=== PATIENT | female | born 1955 | race Caucasian/White ===

== ENCOUNTER → 2019-04-22 14:25 | Outpatient (CLI) | payer MEDICARE | END | disposition home or self-care (01) | LOC: D.HCCARDIO 14:25 | PROVIDERS: ATTEND Internal Medicine Interventional Cardiology | DX: I10 Essential (primary) hypertension (principal); R55 Syncope and collapse ==

== ENCOUNTER 2019-05-14 11:45 | Outpatient (CLI) | payer MEDICARE ==
[~2019-05-14] VITALS: Ht 162.6 cm; Wt 74.1 kg
--- NOTE | ~2019-05-14 | OP ---
PATIENT NAME: DEB LINDSEY MEDICAL RECORD: [id number] :57 LOCATION:D.CAT ADMISSION DATE: SURGEON: KACIE ARREAGA MD DATE OF OPERATION: 05/15/2019 PROCEDURE: Lead portion of permanent pacemaker placement. SURGEON: Yo Frank MD INDICATION: Sick sinus syndrome with pauses greater than 3 seconds. DESCRIPTION OF PROCEDURE: After left subclavian was cannulated via modified Seldinger technique via Dr. Frank, first under fluoroscopic guidance, I placed the RV lead in the RV apex without difficulty. After adequate R waves and thresholds were obtained, again under fluoroscopic guidance, I placed the right atrial lead into right atrial appendage without difficulty. After adequate P waves, thresholds were obtained, the leads were attached to appropriate poles of the generator and the pocket was closed via Dr. Frank. IMPRESSION: Successful lead portion of permanent pacemaker on Deb Lindsey. ESTIMATED BLOOD LOSS: Minimal. COMPLICATIONS: None. DISPOSITION: To the floor, stable. TRANSINT:[id number] Voice Confirmation ID: [id number] DOCUMENT ID: [id number] KACIE ARREAGA MD CC: [id number] DICTATION DATE: 05/19/19 1519 CONSULTING PSYCHIATRIST: 05/20/19 0143 DEP CLI 05/15/19 [id number] [place] [address]
--- NOTE | ~2019-05-14 | HEMODYNAMI ---
PATIENT:DEB FORD MEDICAL RECORD: [id number] : 57 LOCATION:DROBBIE ADMISSION DATE: 05/14/19 Generatedon:05/14/201915:41 Patient name: DEB FORD Patient #: [id number] SSN: : 1955 Date of study: 05/14/2019 Page: Of Hemodynamic Procedure Report Patient Data Patient Demographics Procedure consent was obtained First Name: DEB Gender: Female Last Name: LILIANA : 1955 [facility] Initial: IQRA Age: 63 year(s) Patient #: [id number] Race: Unknown Additional ID: [id number] Contact details [address]: [address] [place] [address] State: [place] City: [place] Zip code: [address] Past Medical History Allergies Allergen Reaction Date Comments Reported Other allergy 05/14/2019 ALICIA FINN Admission Admission Data Admission Date: 05/14/2019 Admission Time: 11:45 Height (in.): 64 BSA: 1.79 (m2) Height (cm.): 162.56 BMI: 28 (kg/m2) Weight (lbs.): 163.14 Weight (kg.): 74 Lab Results Lab Result Date: 05/14/2019 Lab Result Time: 0:00 Biochemistry Name Units Result Min Max BUN mg/dl 22 --(----)-* 7 18 Creatinine mg/dl 0.7 --(*---)-- 0.6 1.3 eGFR ml/min 90 --(*---)-- 90 120 NONAFRICAN CBC Name Units Result Min Max Hematocrit % 40.7 -*(----)-- 42 54 Hemoglobin g/dl 14.1 --(*---)-- 13.5 17.5 Procedure Procedure Types Cath Procedure Diagnostic Procedure PPM/ICD PPM Dual Implant Sedation Charges Moderate Sedation up to 30 minutes Procedure Description Procedure Date Procedure Date: 05/14/2019 Procedure Start Time: 15:09 Procedure End Time: 15:38 Procedure Staff Name Function Kareem Márquez MD Performing Physician Yo Frank MD Assisting physician Sara Barriga RT Monitor Briseyda Jacobs RT Monitor Ines Garcia RT Scrub Nikos Berry RN Nurse Procedure Data Cath Procedure Fluoroscopy Diagnostic fluoroscopy Total fluoroscopy Time: 3.6 time: 3.6 min min Diagnostic fluoroscopy Total fluoroscopy dose: dose: 109.26 mGy 109.26 mGy Estimated blood loss: 10 ml Procedure Complications No complications Procedure Medications Medication Administration Route Dosage Oxygen etCO2 Nasal cannula 2 l/min Lidocaine 1% added to field 20 Ancef (1Gm/50ml NS) I.V.P.B 1 g Ancef Irrigation Topical 1 g (1gm/500ml NS) 0.9% NaCl I.V. Versed I.V. 2 mg Fentanyl I.V. 100 mcg Versed I.V. 2 mg Fentanyl I.V. 100 mcg Versed I.V. 2 mg Fentanyl I.V. 100 mcg Versed I.V. 2 mg Hemodynamics Rest BSA: 1.79 (m2) HGB: 14.1 (g/dl) O2 Consumption: Estimated: 164.12 (ml/min) O2 Co nsumption indexed: Estimated:91.69 (ml/min/m) Heart Rate: 63 (bpm) Snapshots Pre Cath Intra NCS Post Cath Vital Signs Time Heart Resp SPO2 etCO2 NIBP (mmHg) Rhythm Pain Sedation Rate (ipm) (%) (mmHg) Status Level (bpm) 14:43:47 57 15 100 31.8 128/74(107) NSR (Missing) 10(A) 14:48:59 76 24 94 21.4 89/67(75) NSR (Missing) 10(A) 14:53:48 64 19 96 36.9 103/63(89) NSR (Missing) 10(A) 14:57:53 63 18 95 36.9 97/59(76) NSR (Missing) 10(A) 15:03:27 65 27 94 26.6 105/70(89) NSR (Missing) 10(A) 15:07:37 64 13 92 0 86/54(79) NSR (Missing) 10(A) 15:12:50 84 12 94 56.2 87/52(64) NSR (Missing) 9(A) 15:16:50 62 23 94 39.2 79/59(72) NSR (Missing) 9(A) 15:21:43 31 14 94 33.2 84/51(67) NSR (Missing) 9(A) 15:25:42 63 14 96 40.6 98/59(69) NSR (Missing) 9(A) 15:29:48 63 17 96 37.7 86/54(72) NSR (Missing) 9(A) 15:33:46 71 16 93 0 94/64(88) NSR (Missing) 9(A) 15:37:45 78 13 94 0 107/71(81) NSR (Missing) 10(A) Medications Time Medication Route Dose Verified Delivered Reason Notes Effectiv eness by by 14:59:36 Oxygen etCO2 2 Kareem Buffie used for Nasal l/min St Bill Berry RN procedure cannula 14:59:46 Lidocaine added 20ml Kareem Taoism for local 1% to vial St Bill Frank MD anesthetic field x2 14:59:56 Ancef I.V.P.B 1 g Kareem Buffie used for (1Gm/50ml St Bill Berry RN procedure NS) 15:00:05 Ancef Topical 1 g Kareem Taoism used for Irrigation St Bill Frank MD procedure (1gm/500ml NS) 15:00:16 0.9% NaCl I.V. kvo Kareem Pearsonie Per ml/hr St Bill Berry RN physician 15:06:03 Versed I.V. 2 mg Kareem Buffie for WilliBill Berry RN sedation 15:06:08 Fentanyl I.V. 100 Kareem Buffie for [facility] Bill Berry RN sedation 15:11:52 Versed I.V. 2 mg Kareem Buffie for WilliBill Berry RN sedation 15:11:56 Fentanyl I.V. 100 Kareem Buffie for mcg WilliBill Berry RN sedation 15:14:53 Versed I.V. 2 mg Kareem Buffie for WilliBill Berry RN sedation 15:14:58 Fentanyl I.V. 100 Kareem Buffie for [facility] Bill Berry RN sedation 15:21:16 Versed I.V. 2 mg Kareem Buffie for WilliBill Berry RN sedation Procedure Log Time Note 15:06:47 14:18:08 Informed consent obtained and on chart 14:18:34 Procedure Status Elective Heart Cath (OP). 14:18:35 Time tracking: Regular hours (M-F 7:00 - 5:00) 14:18:38 Plan of Care:Hemodynamics will remain stable., Cardiac rhythm will remain stable., Comfort level will be maintained., Respiratory function will remain adequate., Patient/ family verbilizes understanding of procedure., Procedure tolerated without complication., Recovers from procedure without complications.. 14:18:57 H&P Date Dictated: 05/14/2019 New H&P dictated by physician.. 14:20:16 Patient allergic to Other allergyCODEINE, OSPHENA 14:20:37 Lab Result : BUN 22 mg/dl 14:20:38 Lab Result : Creatinine 0.7 mg/dl 14:20:38 Lab Result : eGFR NONAFRICAN 90 ml/min 14:20:38 Lab Result : Hemoglobin 14.1 g/dl 14:20:38 Lab Result : Hematocrit 40.7 % 14:20:49 Nikos Berry RN sent for patient. Start room use. 14:21:00 Use device set JACKIE PPM 14:21:01 2-0 Ticron Multipack ([id number]) opened to sterile field. 14:21:02 3-0 Vicryl Single Pack [id number] opened to sterile field. 14:21:02 5-0 Monocryl PS2 [id number] opened to sterile field. 14:21:03 Cautery Tip Hearing Healthcare Practitioner opened to sterile field. 14:21:03 Cautery Pushbutton Pencil opened to sterile field. 14:21:05 Mepilex Dressing (010068) opened to sterile field. 14:21:07 Immobilizer Large opened to sterile field. 14:21:16 Medtronic 4074-52 PPM Lead opened to sterile field. 14:21:16 Medtronic 4574-45 PPM Lead opened to sterile field. 14:21:[address] Generator [id number] opened to sterile field. 14:23:58 Medtronic sales representative jewelry SACHA POWELL present for procedure. 14:24:17 Patient Weight : 163.14 lbs 14:24:20 Patient Height : 64 inches 14:31:58 Patient received from Pre/Post Procedure Room to [facility] 3 Alert and oriented. Tansferred to table in Supine position. 14:32:00 Warm blankets applied, and christiano hugger turned on for patient comfort. 14:32:00 Correct patient and procedure confirmed by team. 14:32:01 ECG and BP/O2 sat monitors applied to patient. 14:42:36 Vital chart was started 14:42:49 Baseline sample Acquired. 14:42:54 Rhythm: sinus bradycardia 14:42:57 Full Disclosure recording started 14:42:59 - 14:43:00 Pre-procedure instructions explained to patient. 14:43:01 Pre-op teaching completed and patient verbalized understanding. 14:43:04 Family in patients room. 14:43:09 Patient NPO since Midnight. 14:43:24 Is the patient allergic to Iodine/contrast media? Unknown. 14:43:29 Was the patient premedicated? Yes 14:43:32 Is patient on blood thinner?Yes 14:43:38 ACC The patient was administered the following blood thiners within the last 24 hours: ACCAspirin 14:43:42 Patient diabetic? No. 14:43:51 Patient not . Patient is over age 55. 14:43:54 ----Pre-sedation anethsthesia assessment.---- 14:44:02 Previous problem with sedation/anesthesia? No ? 14:44:04 Snore? Yes 14:44:07 Sleep apnea? No 14:44:09 Deviated septum? No 14:44:11 Opens mouth fully? Yes 14:44:13 Sticks out tongue? Yes 14:44:18 Airway obstruction? No ? 14:44:28 Dentures? Yes PARTIAL IN TIGHT 14:44:38 Patient pain scale 0/10 ?. 14:44:50 IV patent on arrival in right wrist with 0.9% NaCl at [facility]. 14:44:57 Lab results completed and on chart. 14:45:08 Left chest area was prepped with chlora-prep and draped in sterile fashion 14:45:10 Alarms reviewed by Demond Garland 14:45:11 Sharps counted by scrub and verified by R.N. 14:46:05 Medtronic sales representative jewelry SACHA POWELL present for procedure. 14:46:15 Use device set JACKIE PPM 14:50:59 Pre sharps counted by scrub and verified by RN: Sutures: 7; Sponges: 5; Stick needles: 2; Skin needles: 1; Blade: 1; Cautery: 1 14:51:29 Grounding pad site Left thigh. 14:51:31 Grounding pad site free from injury. 14:59:36 Oxygen 2 l/min etCO2 Nasal cannula was administered by Nikos Berry RN; used for procedure; Verbal order read back and verified. 14:59:46 Lidocaine 1% 20ml vial x2 added to field was administered by Yo Frank MD; for local anesthetic; Verbal order read back and verified. 14:59:56 Ancef (1Gm/50ml NS) 1 g I.V.P.B was administered by Nikos Berry RN; use d for procedure; Verbal order read back and verified. 15:00:05 Ancef Irrigation (1gm/500ml NS) 1 g Topical was administered by Yo Frank MD; used for procedure; Verbal order read back and verified. 15:00:16 0.9% NaCl kvo ml/hr I.V. was administered by Nikos Berry RN; Per physician; Verbal order read back and verified. 15:05:25 Physician arrived 15:05:26 --------ALL STOP TIME OUT------ 15:05:27 Final Timeout: patient, procedure, and site verified with staff and physician. All members of the team are in agreement. 15:05:35 Left chest site verified by team. 15:05:43 Fire Safety Assessment: A--An alcohol-based skin anteseptic being used preoperatively., B--The operative or invasive procedure is being performed above the xiphoid process or in the oropharynx., C--Open oxygen or nitrous oxide is being used. 15:05:51 Physical assessment completed. ASA score P 2 - A patient with mild systemic disease as per Kareem Márquez MD. 15:06:02 Sedation plan: IV Moderate Sedation Medication:Versed, Fentanyl 15:06:03 Versed 2 mg I.V. was administered by Buffie Berry RN; for sedation; Verbal order read back and verified. 15:06:08 Fentanyl 100 mcg I.V. was administered by Nikos Berry RN; for sedation; Verbal order read back and verified. 15:09:01 Procedure started. 15:09:43 Lidocaine 1% was administered to left subclavicular area by Yo Frank MD . 15:10:29 Incision made to left subclavicular area. 15:11:52 Versed 2 mg I.V. was administered by Nikos Berry RN; for sedation; Verbal order read back and verified. 15:11:56 Fentanyl 100 mcg I.V. was administered by Nikos Berry RN; for sedation; Verbal order read back and verified. 15:13:22 Generator pocket made/opened. 15:14:19 Left subclavian vein accessed with 7Fr Peel Away Sheath. 15:14:53 Versed 2 mg I.V. was administered by Nikos Berry RN; for sedation; Verbal order read back and verified. 15:14:58 Fentanyl 100 mcg I.V. was administered by Nikos Berry RN; for sedation; Verbal order read back and verified. 15:15:58 Left subclavian vein accessed with 7Fr Peel Away Sheath. 15:17:04 Ventricular lead inserted and advanced. 15:17:08 Atrial lead inserted and advanced. 15:19:45 Ventricular lead positioned. 15:21:16 Versed 2 mg I.V. was administered by Nikos Berry RN; for sedation; Verbal order read back and verified. 15:23:20 Ventricular lead tested. 15:23:35 Atrial lead positioned. 15:24:12 Atrial lead tested. 15:24:58 Peel-a-way sheath was split and removed. 15:25:03 Peel-a-way sheath was split and removed. 15:25:15 PPM Dual was attached to lead(s) and inserted into pocket. 15:25:26 PPM Dual was inserted subcutaneously to left chest. 15:25:46 Device pocket was irrigated with Ancef. 15:26:02 Atrial lead attachment was completed with 2-0 ticron. 15:26:08 Ventricular lead attachment was completed with 2-0 ticron. 15:26:17 Generator was sutured in place with 2-0 ticron. 15:28:10 Subcutaneous closure was completed with 3-0 vicryl plus. 15:31:19 Skin closure was completed with 5-0 monocryl. 15:31:53 Parameters-- Generator: Mode: AAIR/DDDR. Lower Rate: 60bpm. Upper Rate: 130bpm. 15:32:31 Parameters--Ventricular P/R Wave: 6.2mV. Current: 0.3mA; Threshold: 0.7V; Impedence: 1599OHMS. 15:33:02 Parameters--Atrial P/R Wave: 2.6mV. Current: 0.6mA; Threshold: 0.2V; Impedence: 557OHMS. 15:34:13 Lt Chest incision was dressed with Mepilex dressing. 15:34:19 Procedure ended.(Physican Out) 15:34:40 Fluoroscopy time 03.60 minutes. 15:34:49 Fluoroscopy dose: 109.26 mGy 15:35:08 Flurop Dose total: 109.26 15:35:22 Dose Area Product 1114.60 mGy/cm. 15:35:25 Sharps counted by scrub and verified by R.N. 15:35:54 Post sharps counted by scrub and verified by RN: Sutures: 7; Sponges: 5 ; Stick needles: 2; Skin needles: 1; Blade: 1; Cautery: 1 15:36:04 Insertion/operative site no bleeding no hematoma. 15:36:15 Post Chest area:stable 15:36:22 Post-procedure physical assessment completed. ASA score P 2 - A patient with mild systemic disease as per Kareem Márquez MD. 15:36:27 Post procedure rhythm: paced 15:36:33 Estimated blood loss: 10 ml 15:36:35 Post procedure instruction explained to patient.Patient verbalizes understanding. 15:36:36 Patient needs reinforcement of post procedure teaching. 15:37:07 Procedure type changed to Cath procedure, Diagnostic procedure, PPM/ICD , PPM Dual Implant, Sedation Charges, Moderate Sedation up to 30 minutes 15:37:09 Procedure and supply charges have been captured, reviewed, submitted an d are correct. 15:37:54 Procedure Complication : No complications 15:37:58 Vital chart was stopped 15:38:04 Operative report dictated upon procedure completion. 15:38:05 See physician's report for complete and final results. 15:38:08 Report given to Med II. 15:38:14 Patient transfered to Med II with Bed. 15:38:19 Procedure ended. 15:38:19 Full Disclosure recording stopped 15:39:48 End room use (Document Last) Device Usage Item Name Manufacture Quantity Catalog Hospital Part Current Minima l Lot# / Serial# Number Charge Number Stock Stock Code 2-0 Ticron Ethicon 9 [id number] 10238 [id number] 5 Multipack ([id number]) 3-0 Vicryl Ethicon 1 [id number] 513125 536118 5 Single Pack [id number] 5-0 Monocryl Ethicon 1 [id number] 754523 343018 302011 5 PS2 Y495G Cautery Tip Microtek 1 [id number] 738061 469905 030166 5 Hearing Healthcare Practitioner [employer] Cautery Microtek 1 [id number] 773828 95908 419047 5 Pushbutton [employer] Inc[employer] Pencil Mepilex Cardinal 1 344400 516524 702028 172204 5 [facility] (238682) Immobilizer Cardinal 1 [id number] 886012 031295 299851 5 Large Health Medtronic Medtronic 1 4074-52 511015 190817 229698 5 [id number] 4074-52 PPM EXP:04/22/2021 Lead Medtronic Medtronic 1 4574-45 484017 003545 [id number] 5 [id number] EXP: 4574-45 PPM 11/28/2020 Lead Medtronic Medtronic 1 [id number] [id number] 389016 [id number] EXP:09/07/2020 Generator [id number] Signature Audit [place] Stage Time Signature Unsigned Intra-Procedure 05/14/2019 Briseyda 3:40:40 PM Arlene RT(R) (CV) Intra-Procedure 05/14/2019 Nikos Berry RN 3:41:13 PM Intra-Procedure 05/14/2019 Kareem Perry 3:41:47 PM Bill [facility] [address] [place] [address]
--- NOTE | ~2019-05-14 | HP ---
PATIENT: DEB FORD MEDICAL RECORD: [id number] ACCOUNT: [id number] LOCATION:BOBBY : 57 ADMISSION DATE: 05/14/19 PCP: BRITNI RODRIGUEZ MD HISTORY AND PHYSICAL EXAMINATION HISTORY OF PRESENT ILLNESS: A 63-year-old female initially seen in the office in referral from Dr. Ramos with syncope, underwent echocardiographic study as well as treadmill stress test, which showed no reversible ischemia. She underwent event monitor, which showed pauses greater than 3 seconds. She will be admitted for a permanent pacemaker placement. PAST MEDIAL HISTORY: History of hypertension. ALLERGIES: None known. MEDICATIONS: Include lisinopril HCT 20/25 every day. PHYSICAL EXAMINATION: GENERAL: Pleasant female, in no acute distress, appears stated age. HEENT: Normocephalic, atraumatic. NECK: No JVD or bruit. HEART: Regular. LUNGS: Barriga clear. EXTREMITIES: Pulses 2+ with no edema. IMPRESSION: Event monitoring shows pauses greater than 3 seconds consistent with sick sinus syndrome. PLAN: For permanent pacemaker placement. TRANSINT:[id number] Voice Confirmation ID: [id number] DOCUMENT ID: [id number] KACIE ARREAGA MD CC: [id number] DICTATION DATE: 05/18/19 1312 [facility] C[facility] MANAGER: 05/18/19 1336 DEP CLI 05/15/19 [id number] [place] [address]
--- NOTE | ~2019-05-14 | OP ---
PATIENT NAME: DEB FORD MEDICAL RECORD: [id number] :57 LOCATION:D.M2 D.2119 ADMISSION DATE: SURGEON: BERHANE MEJIA MD DATE OF OPERATION: 05/14/2019 PREOPERATIVE DIAGNOSIS: Sick sinus syndrome with pauses. POSTOPERATIVE DIAGNOSIS: Sick sinus syndrome with pauses. PROCEDURE: Left subclavian vein dual-lead pacemaker placement. SURGEON: Berhane Mejia MD CO-SURGEON: Kareem Montes MD REPORT OF PROCEDURE: The patient's left chest was prepped and draped in sterile fashion. A 20 mL of 1% lidocaine with epinephrine was infused into the surrounding tissues. A transverse incision was made on the left superior lateral chest and a subcutaneous pouch was made over the pectoral fascia. We were able to access the left subclavian vein times 2 and guidewires were advanced with ease. Fluoro was used to note that the wires were in good position in the venous system. Dilator trocar device was replaced over the wires and the wires and dilators were removed. The leads were placed in the venous system and at this point, Dr. Montes positioned the leads appropriately in the atrium and ventricle. Once the leads were noted to be in good position and functioning appropriately and these were sutured into place with 2-0 TiCron, they were affixed to the pacemaker, which was placed into the subcutaneous pouch and sutured to the pectoral fascia using an interrupted 2-0 TiCron. We irrigated out the wound with antibiotic solution. The subcutaneous tissues were reapproximated with interrupted 3-0 Vicryl and the skin was closed with running subcutaneous 5-0 Monocryl. COMPLICATIONS: None. CONDITION: Stable. ANESTHESIA: Local MAC. BLOOD LOSS: Minimal. TRANSINT:[id number] Voice Confirmation ID: [id number] DOCUMENT ID: [id number] BERHANE MEJIA MD CC: [id number] DICTATION DATE: 05/14/19 1537 SIGN SHOP SUPERVISOR: 05/15/19 0144 [facility] [address] [id number]
[2019-05-14] MEDS ORDERED: BAYER CHEWABLE81 MG PO (12:33)
[2019-05-14] MEDS ORDERED: FLUVOXAMINE MAL50 MG PO (12:33)
[2019-05-14 12:57] LABS: HEMATOCRIT 40.7 % (36.0-48.0); HEMOGLOBIN 14.1 g/dL (12-16); MCH 30.3 pg (26.0-34.0); MCHC 34.6 g/dL (31.0-37.0); MCV 87.5 fL (80.0-100.0); RBC 4.65 10x6/uL (4.00-5.40); RDW 13.8 % (11.5-14.5); WBC 6.3 10x3/uL (4.8-10.8)
[2019-05-14 12:59] VITALS: BP 124/72; BMI 28.0
[2019-05-14 13:05] LABS: INR 1.02 (0.85-1.17)
[2019-05-14 13:07] LABS: CALC OSMOLALITY 285 mosm/kg (275-300); CALCIUM 9.1 mg/dL (8.5-10.1); CARBON DIOXIDE 26.4 mmol/L (21.0-32.0); CHLORIDE - SERUM 103 mmol/L (98-107); CREATININE - SERUM 0.7 mg/dL (0.6-1.3); GLUCOSE 93 mg/dL (74-106); POTASSIUM - SERUM 3.5 mmol/L (3.5-5.1); SODIUM 142 mmol/L (136-145); UREA NITROGEN 22 mg/dL (7-18); eGFR NON AFRICAN AMERICAN 90 mL/min (90-120)
--- NOTE | 2019-05-14 16:13 | NUR ---
TRANSFER FROM CUT IN WORKER BY BED. VS WNL. LEFT CHEST DRSG CDI. LEFT ARM IN SLING. CALL LIGHT IN REACH. WILL CONT. PLAN OF CARE.
[2019-05-14 16:27] VITALS: BP 108/76; Ht 162.6 cm; Wt 74.1 kg
--- NOTE | 2019-05-14 19:32 | NUR ---
RECEIVED BEDSIDE REPORT. PATIENT IS ALERT AND ORIENTED, RESTING COMFORTABLY IN BED. RESPIRATIONS ARE EVEN AND UNLABORED. DRESSING TO L CHEST C/D/I. L ARM REMAINS IN SLING. NO S/S OF DISTRESS. NO C/OPAIN. CALL LIGHT WITHIN REACH. NEEDS MET. WILL CPOC.
[2019-05-14 20:00] VITALS: BP 101/56
--- NOTE | 2019-05-14 22:54 | NUR ---
PATIENT C/O PAIN. PAGED DR. LERNER. RECEIVED RETURNED PAGE ORDERS GIVEN.
[2019-05-14 23:41] VITALS: BP 109/71
[2019-05-15 04:00] VITALS: BP 129/75
--- NOTE | 2019-05-15 04:31 | NUR ---
CALLED AND SPOKE WITH SLAB PULLER ABOUT OVERRIDING PAIN MEDICATION.
--- NOTE | 2019-05-15 07:15 | NUR ---
RECEIVED PT IN BED AAOX4 RESP UNLABORED SKIN W/D COLOR WNL DRSG TO LT CHEST C/D/I LT ARM SLING INTACT PT DENIES ANY DISCOMFORT OR NEEDS AT THIS TIME
[2019-05-15 08:00] VITALS: BP 139/65
[2019-05-15] MEDS ORDERED: HYDROCODON-ACE1 EA10 PO (09:20)
--- NOTE | 2019-05-15 09:24 | NUR ---
WRITTEN SCRIPT GIVEN TO PATIENT FOR NORCO 10 MG #12 WITH NO REFILLS.
--- NOTE | 2019-05-15 09:27 | NUR ---
REFUSED FLU SHOT UPON DISCHARGE.
--- NOTE | 2019-05-15 10:20 | NUR ---
REVIEWED DISCHARGE INSTRUCTIONS WITH PT STATES UNDERSTANDING COPY GIVEN DCD SALINE LOCK TO RFA WITH IV CATHETER INTACT SITE FREE OF REDNESS OR EDEMA PT DISCHARGED HOME LEFT UNIT VIA W/C IN STABLE CONDITION WITH ALL PERSONAL BELONGINGS
== END 2019-05-15 10:20 | disposition home or self-care (01) ==
LOC: D.CATH 11:45 → D.M2 16:02 → D.CATH 05-15 10:20
PROVIDERS: ATTEND Internal Medicine Interventional Cardiology
DX: I49.5 Sick sinus syndrome (principal); R55 Syncope and collapse; I10 Essential (primary) hypertension